=== PATIENT | female | born 1940 | race Caucasian/White ===

== ENCOUNTER 2024-04-17 15:42 | Inpatient (IN) | payer OTHER, MEDICAID ==
[~2024-04-17] VITALS: Ht 167.6 cm; Wt 82.2 kg
[~2024-04-17 15:42] MED LIST: ACE325RS PR; ATEN50TA; CARBAMEZAPINE; DIAZIDE; DICLTAB45 OR; HYDR-1917; KDUR; LEVO25CA2; METO-289 PO; OME20GT; SULF400T11 PO; TOPI15CA10; TRAM50TA2 PO; [UNRECOGNIZED DRUG - OTHER]
[2024-04-17 23:59] VITALS: BP 144/79; PULSE 102; RESP 18; TEMP 99.2; O2SAT 96
[2024-04-18] VITALS (22 sets, daily range): BP systolic 102–144; BP diastolic 58–106; PULSE 68–124; RESP 12–24; TEMP 97.6–98.5; O2SAT 95–100
[2024-04-18] MEDS ORDERED: MORPHINE SULFATE INJ 2 MG/ml SYRG IV PRN (01:15)
[2024-04-18] MEDS ORDERED: NITROGLYCERIN 0.4 MG SL TAB SL PRN (01:15)
[2024-04-18] MEDS ORDERED: HYDROcodone-ACET 5/325MG TAB PO PRN (01:15)
[2024-04-18] MEDS ORDERED: ACETAMINOPHEN 325 MG TAB PO PRN (01:15)
[2024-04-18] MEDS ORDERED: D5W/SOD CHLO 0.9% 1,000 ML IV SCH (03:15)
[2024-04-18] MEDS ORDERED: AML5T PO (03:17)
[2024-04-18] MEDS ORDERED: FURO40TA4 PO (03:17)
[2024-04-18] MEDS ORDERED: LEVE500T40 PO (03:17)
[2024-04-18] MEDS ORDERED: GABA-1250 PO (03:17)
[2024-04-18] MEDS ORDERED: CLON0.1T PO (03:17)
[2024-04-18] MEDS ORDERED: ASPI81CH59 PO (03:17)
[2024-04-18] MEDS: SODIUM CHLORIDE 0.9% 1,000 ML IV SCH (03:49)
[2024-04-18 03:55] LABS: Urine Amorphous Crystal FEW /hpf (None Seen); Urine Bacteria MANY /hpf (None Seen); Urine Blood TRACE /uL (Negative); Urine Clarity Turbid (Clear); Urine Color Colorless (Yellow); Urine Protein, UAD TRACE (Negative); Urine Specific Gravity 1.016 (1.001-1.035); Urine Urobilinogen 2 mg/dL (Negative); Urine WBC 19 /hpf (0 - 5)
[2024-04-18 05:51] LABS: Basophils # (auto) 0 10 ^3/uL (0-0.2); Basophils % (auto) 0.1 % (0.0-2.0); Eosinophils # (auto) 0.2 10 ^3/uL (0-0.8); Eosinophils % (auto) 0.8 % (0.0-7.0); Hematocrit 33.2 % (36.0-46.0); Hemoglobin 11.3 g/dL (12.2-16.2); Mean Corpuscular Volume 99.8 fL (80.0-100.0); Monocytes # (auto) 1.2 10 ^3/uL (0-1.3); Monocytes % (auto) 6.3 % (0.0-12.0); Neutrophils # (auto) 16.8 10 ^3/uL (1.6-8.6); Neutrophils % (auto) 87.8 % (37.0-80.0); Nucleated Red Blood Cells % 0.2 %; Platelet Count (auto) 190 10^3/uL (140-450); Red Blood Cells 3.33 10^6/uL (4.0-5.20); Red Cell Distribution Width 18.2 % (11.8-14.3); White Blood Cell 19.2 10^3/uL (4.4-10.8)
[2024-04-18 06:03] LABS: INR 1.08 (0.9-1.15); Prothrombin Time 11.4 sec (9.3-11.8)
[2024-04-18 06:11] LABS: Chloride 103 mmol/L (98-107); Potassium 3.7 mmol/L (3.5-5.1); Sodium 139 mmol/L (136-145)
[2024-04-18 06:12] LABS: Anion Gap 10 (5-15); Calcium 9.3 mg/dL (8.7-10.4); Carbon Dioxide 26 mmol/L (20-30)
[2024-04-18 06:17] LABS: BUN/Creatinine Ratio 18.5 (10.0-20.0); Blood Urea Nitrogen 17 mg/dL (9-23); Glucose 104 mg/dL (74-106)
[2024-04-18] MEDS: PNEUMOCOCCAL VACC POLYS 25 MCG/0.5 ML VIAL IM ONE (10:00)
[2024-04-18] MEDS: ENOXAPARIN SOD 40 MG/0.4 ML SYRINGE SC SCH (10:00)
[2024-04-18] MEDS: levETIRAcetam 500 mg/100ml 100 ML IV SCH (10:16)
[2024-04-18] MEDS ORDERED: MIDAZOLAM HCL 2MG/2ML 2ml VIAL (1mg/ml) ONE (10:49)
[2024-04-18] MEDS ORDERED: KETAMINE 50mg/ML 1ml syringe ONE (10:49)
[2024-04-18] MEDS ORDERED: fentaNYL CITRATE 100 MCG/2 ML VL ONE (10:49)
[2024-04-18] MEDS ORDERED: ONDANSETRON HCL 4 MG/2 ML VIAL ONE (10:50)
[2024-04-18] MEDS ORDERED: MORPHINE SULF PF 5 MG/10 ML VIAL ONE (10:50)
[2024-04-18] MEDS ORDERED: PROPOFOL 10 MG/ML 20 ML IV ONE (10:50)
[2024-04-18] MEDS ORDERED: ePHEDrine SULFATE 50 MG/ML AMP ONE (10:50)
[2024-04-18] MEDS ORDERED: PHENYLEPHRINE HCL 10 MG/ML VL ONE (10:50)
[2024-04-18] MEDS ORDERED: GLYCOPYRROLATE 0.2 MG/ML 1ML VIAL ONE (10:50)
[2024-04-18] MEDS ORDERED: KETOROLAC TROMETH 30 MG/ML 1ML VIAL IV PRN (12:45)
[2024-04-18] MEDS ORDERED: NALOXONE HCL 0.4 MG/ML VIAL IV PRN (12:45)
[2024-04-18] MEDS: ACCU-CHEK COMFORT CURVE STRIP VI ONE (12:45)
[2024-04-18] MEDS ORDERED: DexAMETHasone SOD PHOS 10MG/1ML VIAL INJ IV PRN (12:45)
[2024-04-18] MEDS ORDERED: ONDANSETRON HCL 4 MG/2 ML VIAL IV PRN ×2 (12:45)
[2024-04-18] MEDS ORDERED: diphenhdrAMINE HCL 50 MG/1 ML VL IV PRN (12:45)
[2024-04-18] MEDS: IPRATROPIUM BROM 0.5 MG/2.5ML INH SOL NEB ONE (13:38)
[2024-04-18] MEDS: ALBUTEROL SULF 2.5 MG/0.5ML(0.5%) NEB SOLN NEB ONE (13:38)
[2024-04-18] MEDS ORDERED: DexAMETHasone SOD PHOS 10MG/1ML VIAL INJ IV ONE (13:57)
[2024-04-18] MEDS: ceFAZolin 2 GM/D5W50ml 50 ML IV SCH (19:45)
[2024-04-19] VITALS (20 sets, daily range): BP systolic 106–134; BP diastolic 60–77; PULSE 71–103; RESP 14–20; TEMP 97.7–98.5; O2SAT 91–100
[2024-04-19] MEDS: MORPHINE SULFATE INJ 2 MG/ml SYRG IV PRN (03:02)
[2024-04-19 06:58] LABS: Basophils # (auto) 0 10 ^3/uL (0-0.2); Basophils % (auto) 0.1 % (0.0-2.0); Eosinophils # (auto) 0 10 ^3/uL (0-0.8); Lymphocytes # (auto) 0.8 10 ^3/uL (0.4-5.4); Lymphocytes % (auto) 4.5 % (10.0-50.0); Mean Corpuscular Hemoglobin 33.9 pg (28.0-32.0); Mean Corpuscular Hgb Conc. 33.2 g/dL (32.0-36.0); Mean Corpuscular Volume 102.1 fL (80.0-100.0); Monocytes # (auto) 0.7 10 ^3/uL (0-1.3); Monocytes % (auto) 4.5 % (0.0-12.0); Neutrophils % (auto) 90.9 % (37.0-80.0); Platelet Count (auto) 167 10^3/uL (140-450); Red Blood Cells 2.35 10^6/uL (4.0-5.20); Red Cell Distribution Width 17.8 % (11.8-14.3); White Blood Cell 16.5 10^3/uL (4.4-10.8)
[2024-04-19 07:05] LABS: Chloride 107 mmol/L (98-107); Potassium 3.9 mmol/L (3.5-5.1); Sodium 139 mmol/L (136-145)
[2024-04-19 07:06] LABS: Anion Gap 7 (5-15); Calcium 8.6 mg/dL (8.7-10.4); Carbon Dioxide 25 mmol/L (20-30)
[2024-04-19 07:11] LABS: BUN/Creatinine Ratio 23.3 (10.0-20.0); Blood Urea Nitrogen 24 mg/dL (9-23); Glucose 152 mg/dL (74-106)
[2024-04-19] MEDS: cefTRIAXone 1GM/50ML D5W 50 ML IV SCH (08:35)
[2024-04-19] MEDS ORDERED: OMEP1CAP70 PO (11:48)
[2024-04-19] MEDS ORDERED: AMLO1TAB23 PO (11:48)
[2024-04-19] MEDS: METOPROLOL SUCCINATE XL 50 MG TAB PO SCH (15:33)
[2024-04-19] MEDS: GABAPENTIN 300 MG CAP PO SCH (15:33)
[2024-04-19] MEDS: ONDANSETRON HCL 4 MG/2 ML VIAL IV PRN (15:36)
[2024-04-19] MEDS: DOCUSATE SOD 100 MG CAP PO PRN (18:14)
[2024-04-19] MEDS: cloNIDine HCL 0.1 MG TAB PO SCH (18:15)
[2024-04-19] MEDS: levETIRAcetam 500 MG TAB PO SCH (22:01)
[2024-04-20] VITALS (9 sets, daily range): BP systolic 105–122; BP diastolic 49–69; PULSE 66–77; RESP 14–19; TEMP 97.9–99; O2SAT 90–100
[2024-04-20 06:41] LABS: Chloride 106 mmol/L (98-107); Potassium 4.4 mmol/L (3.5-5.1); Sodium 136 mmol/L (136-145)
[2024-04-20 06:42] LABS: Anion Gap 4 (5-15); Calcium 8.7 mg/dL (8.7-10.4); Carbon Dioxide 26 mmol/L (20-30)
[2024-04-20 06:47] LABS: BUN/Creatinine Ratio 27.5 (10.0-20.0); Basophils # (auto) 0 10 ^3/uL (0-0.2); Blood Urea Nitrogen 25 mg/dL (9-23); Eosinophils # (auto) 0 10 ^3/uL (0-0.8); Glucose 105 mg/dL (74-106); Lymphocytes # (auto) 0.8 10 ^3/uL (0.4-5.4); Lymphocytes % (auto) 4.6 % (10.0-50.0); Mean Corpuscular Hemoglobin 33.6 pg (28.0-32.0); Mean Corpuscular Hgb Conc. 32.8 g/dL (32.0-36.0); Mean Corpuscular Volume 102.3 fL (80.0-100.0); Monocytes # (auto) 0.9 10 ^3/uL (0-1.3); Monocytes % (auto) 5.4 % (0.0-12.0); Neutrophils # (auto) 15.6 10 ^3/uL (1.6-8.6); Nucleated Red Blood Cells % 0.1 %; Platelet Count (auto) 197 10^3/uL (140-450); Red Blood Cells 2.05 10^6/uL (4.0-5.20); Red Cell Distribution Width 17.8 % (11.8-14.3); White Blood Cell 17.4 10^3/uL (4.4-10.8)
[2024-04-20 07:22] LABS: Hemoglobin 6.9 g/dL (12.2-16.2)
[2024-04-20] MEDS: TAMSULOSIN HYDROCHLORIDE 0.4 MG CAP PO ONE ×2 (08:00→08:12)
[2024-04-20] MEDS: HYDROcodone-ACET 5/325MG TAB PO PRN (18:32)
[2024-04-21] VITALS (9 sets, daily range): BP systolic 109–135; BP diastolic 57–69; PULSE 66–84; RESP 16–18; TEMP 97.3–98.4; O2SAT 96–100
[2024-04-21 05:23] LABS: Chloride 108 mmol/L (98-107); Potassium 4.5 mmol/L (3.5-5.1); Sodium 138 mmol/L (136-145)
[2024-04-21 05:24] LABS: Anion Gap 3 (5-15); Calcium 8.4 mg/dL (8.7-10.4); Carbon Dioxide 27 mmol/L (20-30)
[2024-04-21 05:29] LABS: BUN/Creatinine Ratio 26.7 (10.0-20.0); Blood Urea Nitrogen 23 mg/dL (9-23); Glucose 90 mg/dL (74-106)
[2024-04-21 06:12] LABS: Basophils # (auto) 0 10 ^3/uL (0-0.2); Basophils % (auto) 0.2 % (0.0-2.0); Eosinophils # (auto) 0.2 10 ^3/uL (0-0.8); Eosinophils % (auto) 1.6 % (0.0-7.0); Hematocrit 20.9 % (36.0-46.0); Lymphocytes # (auto) 1.6 10 ^3/uL (0.4-5.4); Lymphocytes % (auto) 14.6 % (10.0-50.0); Mean Corpuscular Hemoglobin 34.2 pg (28.0-32.0); Mean Corpuscular Hgb Conc. 33.4 g/dL (32.0-36.0); Mean Corpuscular Volume 102.5 fL (80.0-100.0); Monocytes % (auto) 9.2 % (0.0-12.0); Neutrophils # (auto) 8.1 10 ^3/uL (1.6-8.6); Neutrophils % (auto) 74.4 % (37.0-80.0); Nucleated Red Blood Cells % 0.1 %; Platelet Count (auto) 221 10^3/uL (140-450); Red Blood Cells 2.04 10^6/uL (4.0-5.20); Red Cell Distribution Width 17.6 % (11.8-14.3); White Blood Cell 10.9 10^3/uL (4.4-10.8)
[2024-04-21] MEDS: TAMSULOSIN HYDROCHLORIDE 0.4 MG CAP PO SCH (08:56)
[2024-04-21] MEDS: BUPIVACAINE HCL 0.25% P/F 10 ML VIAL ONE (10:24)
[2024-04-21] MEDS: BUPIVACAINE 0.5% P/F INJ 10 ML VIAL ONE ×2 (10:47→16:35)
[2024-04-21] MEDS: ceFAZolin 1GM/50ML 100 ML IV ONE (10:56)
[2024-04-21] MEDS: TRANEXAMIC ACID 20 ML ONE (11:45)
[2024-04-22] VITALS (10 sets, daily range): BP systolic 103–139; BP diastolic 56–75; PULSE 77–90; RESP 16–18; TEMP 97.4–98.6; O2SAT 90–100
[2024-04-22 06:55] LABS: Hematocrit 22.9 % (36.0-46.0)
[2024-04-22 06:59] LABS: Hemoglobin 7.6 g/dL (12.2-16.2); Mean Corpuscular Hemoglobin 33.8 pg (28.0-32.0); Mean Corpuscular Hgb Conc. 33.3 g/dL (32.0-36.0); Mean Corpuscular Volume 101.3 fL (80.0-100.0); Platelet Count (auto) 296 10^3/uL (140-450); Red Blood Cells 2.26 10^6/uL (4.0-5.20); Red Cell Distribution Width 17.5 % (11.8-14.3); White Blood Cell 12.4 10^3/uL (4.4-10.8)
[2024-04-22 07:10] LABS: Basophils % (manual) 0 (0.0-2.0); Blast Cells 0; Metamyelocytes % 0; Myelocytes % 0; Promyelocytes % 0; Reactive Lymphocytes 0
[2024-04-22 08:12] LABS: Band Neutrophils % (manual) 4; Eosinophils % (manual) 4 (0-7); Lymphocytes % (manual) 16 (10.0-50.0); Monocytes % (manual) 9 (0-12)
[2024-04-22 08:13] LABS: Anisocytosis Slight; Macrocytosis Slight; Platelet Estimate Adequate
[2024-04-22] MEDS: FERROUS SULFATE 325mg EC TAB PO SCH (18:02)
[2024-04-23] VITALS (10 sets, daily range): BP systolic 93–130; BP diastolic 56–76; PULSE 71–82; RESP 15–96; TEMP 97.5–98.7; O2SAT 95–100
[2024-04-24] VITALS (8 sets, daily range): BP systolic 96–125; BP diastolic 52–66; PULSE 72–89; RESP 16–19; TEMP 97.4–98.6; O2SAT 91–100
[2024-04-25] VITALS (7 sets, daily range): BP systolic 94–119; BP diastolic 53–64; PULSE 58–80; RESP 16–18; TEMP 97.7–98.4; O2SAT 98–100
[2024-04-25] MEDS: LACTULOSE 20Gm/30ML SOLN PO ONE (11:53)
== END 2024-04-25 18:39 | DRG 481 ==
LOC: TELE-WESTW 04-18 00:05
PROVIDERS: ADMIT Internal Medicine; ATTEND Hospitalist
PROC: 0QS704Z Reposition Left Upper Femur with Internal Fixation Device, Open Approach (ICD-10-PCS; principal; 2024-04-18 11:10)
DX: S72.142A Displaced intertrochanteric fracture of left femur, initial encounter for closed fracture (principal); N39.0 Urinary tract infection, site not specified; E11.9 Type 2 diabetes mellitus without complications; I10 Essential (primary) hypertension; G40.909 Epilepsy, unspecified, not intractable, without status epilepticus; W01.0XXA Fall on same level from slipping, tripping and stumbling without subsequent striking against object, initial encounter; Z79.82 Long term (current) use of aspirin; Z79.899 Other long term (current) drug therapy; Y93.89 Activity, other specified; Y92.89 Other specified places as the place of occurrence of the external cause; Y99.8 Other external cause status
CPT/HCPCS: 36415; 73502; 76000; 80048; 81001; 82962; 85007; 85025; 85027; 85610; 86850; 86870; 86900; 86901; 86902; 86922; 87086; 87088; 87186; 93306; 94640; 97110; 97116; 97163; 97530; G0378; J1100; J2250; J2405; J2704; J3490